=== PATIENT | female | born 1970 | race Caucasian/White ===

== ENCOUNTER 2016-10-07 00:45 | Emergency (ER) | payer MEDICAID, OTHER ==
[2016-10-07 01:03] VITALS: BP 111/56; PULSE 71; RESP 17; TEMP 98.4; O2SAT 97
--- NOTE | 2016-10-07 02:07 | ED PDOC ---
HPI: Abdomen Time Seen by Provider: 10/07/16 01:14 Chief Complaint (Nursing): Abdominal Pain Chief Complaint (Provider): Abdominal pain History Per: Patient History/Exam Limitations: no limitations Onset/Duration Of Symptoms: Days (x1 week) Current Symptoms Are (Timing): Still Present Severity: Mild Location Of Pain/Discomfort: Other (lower) Quality Of Discomfort: Burning Associated Symptoms: denies: Fever Additional Complaint(s): Patient is a 46 year old female, who has a history of ovarian cyst and UTI, presents to the ED complaining of lower abdominal pain x1 week. Pain is reported to be worsening and described as burning. Patient took a home urine test that was negative for an infection. Symptoms are similar to that of her previous ruptured ovarian cyst. Denies fever. PMD: Prateek Schmitz Past Medical History Reviewed: Historical Data, Nursing Documentation, Vital Signs Vital Signs: Last Vital Signs Temp 98.4 F 10/07/16 01:00 Pulse 71 10/07/16 01:00 Resp 17 10/07/16 01:00 BP 111/56 L 10/07/16 01:00 Pulse Ox 97 10/07/16 03:53 - Medical History PMH: Anxiety, Arthritis (RA), Asthma, Hypercholesterolemia, Migraine, Rheumatoid Arthritis - Surgical History Surgical History: Back Surgery (7 cm mass removal from right shoulder blade) Other surgeries: traumatic head injury metal plate placed in her head - Family History Family History: States: No Known Family Hx - Home Medications Home Medications: Ambulatory Orders Medication Instructions Recorded Cetirizine Hydrochloride [Zyrtec] 10 mg PO DAILY 03/18/14 Amoxicillin/Clavulanate [Augmentin 1 tab PO BID #20 tab 07/17/15 500 MG-125 MG] Naproxen [Naprosyn] 500 mg PO BID PRN #30 tab 07/17/15 Ciprofloxacin HCl [Cipro] 500 mg PO BID #14 tab 08/20/15 Naproxen 1 tab PO Q8 PRN #21 tablet 02/03/16 Cyclobenzaprine [Cyclobenzaprine 10 mg PO Q8 #15 tab 06/15/16 HCl] Meloxicam [Mobic] 7.5 mg PO DAILY #20 tab 06/15/16 Ciprofloxacin/Ciprofloxa HCl 500 mg PO Q12 #14 tab 10/07/16 [Ciprofloxacin] traMADol [Ultram] 50 mg PO Q6 #12 tab 10/07/16 - Allergies Allergies/Adverse Reactions: Allergies Allergy/AdvReac Type Severity Reaction Status Date / Time apple Allergy URTICARIA Verified 06/15/16 16:16 banana Allergy URTICARIA Verified 06/15/16 16:16 chocolate flavor Allergy URTICARIA Verified 06/15/16 16:16 EGG Allergy URTICARIA Verified 02/03/16 11:04 garlic Allergy URTICARIA Verified 06/15/16 16:16 latex Allergy RASH Verified 06/15/16 16:16 milk Allergy URTICARIA Verified 06/15/16 16:16 oats Allergy URTICARIA Verified 06/15/16 16:16 peas Allergy URTICARIA Verified 06/15/16 16:16 shellfish derived Allergy URTICARIA Verified 06/15/16 16:16 wheat Allergy URTICARIA Verified 06/15/16 16:16 bee sting Allergy URTICARIA Uncoded 06/15/16 16:16 mosquito bite Allergy URTICARIA Uncoded 06/15/16 16:16 Review of Systems ROS Statement: Except As Marked, All Systems Reviewed And Found Negative Constitutional: Negative for: Fever Gastrointestinal: Positive for: Abdominal Pain Physical Exam - Reviewed Nursing Documentation Reviewed: Yes Vital Signs Reviewed: Yes - Physical Exam Appears: Positive for: Well, Non-toxic, No Acute Distress Head Exam: Positive for: ATRAUMATIC, NORMAL INSPECTION, NORMOCEPHALIC Skin: Positive for: Normal Color, Warm, DRY Eye Exam: Positive for: Normal appearance, EOMI Cardiovascular/Chest: Positive for: Regular Rate, Rhythm. Negative for: Gallop , Murmur Respiratory: Positive for: Normal Breath Sounds. Negative for: Accessory Muscle Use, Rhonchi, Respiratory Distress Gastrointestinal/Abdominal: Positive for: Soft, Tenderness (suprapubic) Extremity: Positive for: Normal ROM Neurologic/Psych: Positive for: Alert, Oriented - Laboratory Results Result Diagrams: 10/07/16 02:00 10/07/16 02:00 - ECG O2 Sat by Pulse Oximetry: 97 (RA) Pulse Ox Interpretation: Normal Medical Decision Making Medical Decision Making: Time: 1:15 Impression: 46 y/o female w/ abdominal pain in setting of hx of ovarian cyst Plan: CMP Lipase UPreg UDip CBC Toradol 10 mg IV UA US Pelvis/Transvag 3:50 Labs reviewed and are within normal limits except urine which is indicative of UTI. US shows right ovary complex cyst 3.7 by 3.2 by 3.3 cm with no evidence of torsion. Patient will follow up in the [facility]. Patient feels better. Discussed results and plan with patient who expresses understanding. Counseling was provided regarding the diagnosis and prognosis. All questions answered and there is agreement with the plan to discharge home with instructions. Patient stable for discharge. Return if symptoms persist or worsen. Scribe Attestation: Documented by Lobo Curry acting as a scribe for Junito Bass MD. Scribe Attestation: All medical record entries made by the Scribe were at my direction and personally dictated by me. I have reviewed the chart and agree that the record accurately reflects my personal performance of the history, physical exam, medical decision making, and the department course for this patient. I have also personally directed, reviewed, and agree with the discharge instructions and disposition. Disposition - Clinical Impression Clinical Impression: Ovarian cyst, UTI (lower urinary tract infection) - Patient ED Disposition Is Patient to be Admitted: No Counseled Patient/Family Regarding: Studies Performed, Diagnosis, Need For Followup - Disposition [facility] Prateek Schmitz MD [Primary Care Provider] - Disposition: Routine/Home Disposition Time: 03:50 Condition: STABLE Prescriptions: Ciprofloxacin/Ciprofloxa HCl [Ciprofloxacin] 500 mg PO Q12 #14 tab traMADol [Ultram] 50 mg PO Q6 #12 tab Instructions: Ovarian Cyst (ED), Urinary Tract Infection in Women (ED)
[2016-10-07 02:46] LABS: BASO # 0.1 K/uL (0.0-0.2); BASO % 0.8 % (0.0-2.0); EOS # 0.2 K/uL (0.0-0.7); HEMATOCRIT 38.8 % (34.0-47.0); LYMPH # 3.4 K/uL (1.0-4.3); LYMPH % 40.6 % (20.0-40.0); MEAN CELL VOLUME 85.5 fl (81.0-99.0); MEAN CORPUSCULAR HEMOGLOBIN 27.5 pg (27.0-31.0); MEAN CORPUSCULAR HGB CONC 32.1 g/dL (33.0-37.0); MEAN PLATELET VOLUME 9.5 fl (7.2-11.7); MONO # 0.8 K/uL (0.0-0.8); NEUT # 3.8 K/uL (1.8-7.0); NEUT % 45.6 % (50.0-75.0); NRBC % 0.1 % (0.0-0.0); RED CELL DISTRIBUTION WIDTH 13.8 % (11.5-14.5); WHITE BLOOD COUNT 8.3 K/uL (4.8-10.8)
[2016-10-07 02:51] LABS: RBC URINE 6 /hpf (0-3); URINE BILIRUBIN SMALL (NEGATIVE); URINE BLOOD NEGATIVE (NEGATIVE); URINE COLOR AMBER (YELLOW); URINE GLUCOSE (UA) NEG (Normal); URINE KETONE TRACE mg/dL (NEGATIVE); URINE LEUKOCYTE ESTERASE NEG Leu/uL (Negative); URINE PROTEIN NEGATIVE (NEGATIVE); WBC URINE < 1 /hpf (0-5)
[2016-10-07 02:53] LABS: CHLORIDE 107 mmol/L (98-107); POTASSIUM 4.1 MMOL/L (3.6-5.0); SODIUM 141 mmol/l (132-148)
[2016-10-07 02:56] LABS: ALB/GLOB RATIO 1.3 (1.0-2.1); ALKALINE PHOSPHATASE 51 U/L (38-126); ALT/SGPT 30 U/L (9-52); AST/SGOT 24 U/L (14-36); BILIRUBIN,TOTAL 0.3 mg/dl (0.2-1.3); BLOOD UREA NITROGEN 18 mg/dl (7-17); CALCIUM 8.9 mg/dL (8.4-10.2); CARBON DIOXIDE 22 mmol/L (22-30); GFR AFRICAN-AMERICAN > 60; GLUCOSE,RANDOM 101 mg/dL (65-105); TOTAL PROTEIN 6.9 G/DL (6.3-8.2)
[2016-10-07 02:57] LABS: LIPASE 95 U/L (23-300)
[2016-10-07] MEDS ORDERED: cefTRIAXone (Rocephin) 1 gm Inj ONE (03:48)
--- NOTE | 2016-10-07 09:09 | US ---
HISTORY: Ovarian cyst COMPARISON: 02/03/2016 TECHNIQUE: Transabdominal and transvaginal pelvic ultrasound was performed. FINDINGS: UTERUS: Measures 8.5 x 4.0 x 4.2 cm. Anteverted, normal in size and appearance. No fibroid or other mass lesion seen. ENDOMETRIUM: Measures 6 mm in diameter. Unremarkable. CERVIX: No cervical abnormality identified. RIGHT OVARY: Measures 5.5 x 3.4 x 5.0 cm. No solid mass. Normal flow. There is a 3.7 x 3.3 x 3.2 cm cyst with internal septation echoes. There is no central flow on color Doppler imaging. LEFT OVARY: Measures 2.8 x 2.3 x 2.6 cm. No solid mass. Normal flow. FREE FLUID: No significant free fluid noted. OTHER FINDINGS: None. IMPRESSION: 3.7 cm complicated/hemorrhagic cyst in the right ovary. No evidence of ovarian torsion. Follow-up ultrasound in 3 months interval is recommended to assess stability/resolution.
== END 2016-10-07 05:19 | disposition home or self-care (01) ==
LOC: H.ER 00:45
DX: N83.201 Unspecified ovarian cyst, right side (principal); N39.0 Urinary tract infection, site not specified; E78.00 Pure hypercholesterolemia, unspecified; F41.9 Anxiety disorder, unspecified; Z87.09 Personal history of other diseases of the respiratory system

== ENCOUNTER 2016-11-12 11:57 | Emergency (ER) | payer MEDICAID, OTHER ==
[2016-11-12 12:03] VITALS: BP 131/66; PULSE 84; RESP 22; TEMP 98; O2SAT 100
--- NOTE | 2016-11-12 12:48 | ED PDOC ---
HPI: General Adult Time Seen by Provider: 11/12/16 12:30 Chief Complaint (Nursing): Cough, Cold, Congestion Chief Complaint (Provider): Allergic Reaction History Per: Patient History/Exam Limitations: no limitations Onset/Duration Of Symptoms: Hrs Current Symptoms Are (Timing): Still Present Additional Complaint(s): 12:30 Rosy Sutton is a 46 year old female with a history of many food allergies that presents to the ED with a chief complaint of an allergic reaction that she began experiencing last night. Patient states that she ate chicken for dinner and began to feel swelling in her face, along with associated redness. She states that she took a Benadryl last night, as well as two this morning, but has not experienced a resolution of her symptoms. Patient has also been experiencing associated difficulty breathing, and used an Albuterol pump, but still has difficulty breathing. She reports some associated nausea, but denies any chest pain, shortness of breath, abdominal pain, swelling to her face, hands , eyes, lips, or tongue, as well as any itchy or watery eyes. Past Medical History Reviewed: Historical Data, Nursing Documentation, Vital Signs Vital Signs: Last Vital Signs Temp 98.0 F 11/12/16 12:01 Pulse 84 11/12/16 12:01 Resp 22 11/12/16 12:01 BP 131/66 11/12/16 12:01 Pulse Ox 100 11/12/16 12:01 - Medical History PMH: Anxiety, Arthritis (RA), Asthma, Hypercholesterolemia, Migraine, Rheumatoid Arthritis - Surgical History Surgical History: Back Surgery (7 cm mass removal from right shoulder blade) - Family History Family History: States: Unknown Family Hx - Home Medications Home Medications: Ambulatory Orders Medication Instructions Recorded Cetirizine Hydrochloride [Zyrtec] 10 mg PO DAILY 03/18/14 Amoxicillin/Clavulanate [Augmentin 1 tab PO BID #20 tab 07/17/15 500 MG-125 MG] Naproxen [Naprosyn] 500 mg PO BID PRN #30 tab 07/17/15 Ciprofloxacin HCl [Cipro] 500 mg PO BID #14 tab 08/20/15 Naproxen 1 tab PO Q8 PRN #21 tablet 02/03/16 Cyclobenzaprine [Cyclobenzaprine 10 mg PO Q8 #15 tab 06/15/16 HCl] Meloxicam [Mobic] 7.5 mg PO DAILY #20 tab 06/15/16 Ciprofloxacin/Ciprofloxa HCl 500 mg PO Q12 #14 tab 10/07/16 [Ciprofloxacin] traMADol [Ultram] 50 mg PO Q6 #12 tab 10/07/16 Cetirizine HCl [Zyrtec Allergy] 10 mg PO DAILY #20 sgl 11/12/16 Famotidine [Pepcid] 20 mg PO BID #16 tab 11/12/16 Methylprednisolone [Medrol Dose 4 mg PO DAILY #21 mg 11/12/16 Pack (21 tabs)] - Allergies Allergies/Adverse Reactions: Allergies Allergy/AdvReac Type Severity Reaction Status Date / Time apple Allergy URTICARIA Verified 06/15/16 16:16 banana Allergy URTICARIA Verified 06/15/16 16:16 chocolate flavor Allergy URTICARIA Verified 06/15/16 16:16 EGG Allergy URTICARIA Verified 02/03/16 11:04 garlic Allergy URTICARIA Verified 06/15/16 16:16 latex Allergy RASH Verified 06/15/16 16:16 milk Allergy URTICARIA Verified 06/15/16 16:16 oats Allergy URTICARIA Verified 06/15/16 16:16 peas Allergy URTICARIA Verified 06/15/16 16:16 shellfish derived Allergy URTICARIA Verified 06/15/16 16:16 wheat Allergy URTICARIA Verified 06/15/16 16:16 bee sting Allergy URTICARIA Uncoded 06/15/16 16:16 mosquito bite Allergy URTICARIA Uncoded 06/15/16 16:16 Review of Systems Constitutional: Positive for: Other (swelling and resness of face) Eyes: Negative for: Other (no itchy or watery eyes) ENT: Negative for: Mouth Swelling, Throat Swelling Cardiovascular: Negative for: Chest Pain Respiratory: Positive for: Other (some difficulty breathing). Negative for: Shortness of Breath Gastrointestinal: Positive for: Nausea (mild). Negative for: Abdominal Pain, Diarrhea Physical Exam - Reviewed Nursing Documentation Reviewed: Yes Vital Signs Reviewed: Yes - Physical Exam Appears: Positive for: Well, Non-toxic Head Exam: Positive for: ATRAUMATIC, NORMOCEPHALIC Skin: Positive for: Normal Color (no erythema to face), Warm ENT: Positive for: Normal ENT Inspection, Other (no swelling noted) Cardiovascular/Chest: Positive for: Regular Rate, Rhythm. Negative for: Murmur Respiratory: Positive for: Normal Breath Sounds. Negative for: Respiratory Distress Neurologic/Psych: Positive for: Alert, Oriented - ECG O2 Sat by Pulse Oximetry: 100 (RA) Pulse Ox Interpretation: Normal Medical Decision Making Medical Decision Makin:35 Impression: Patient with history of allergic reaction with complaint of some shortness of breath Plan: Gave patient Rx for Medrol, Pepcid, and Zyrtec. Advised patient only to use Epipen with severe allergic reaction. Advised patient to return to ER if experiencing no resolution or worsening of symptoms. Scribe Attestation: Documented by Camille Jackson, acting as a scribe for Ana Woodall PA-C. Provider Scribe Attestation: All medical record entries made by the Scribe were at my direction and personally dictated by me. I have reviewed the chart and agree that the record accurately reflects my personal performance of the history, physical exam, medical decision making, and the department course for this patient. I have also personally directed, reviewed, and agree with the discharge instructions and disposition. Disposition - Clinical Impression Clinical Impression: Allergic reaction - Patient ED Disposition Is Patient to be Admitted: No - Disposition Disposition: Routine/Home Disposition Time: 12:35 Condition: STABLE Prescriptions: Cetirizine HCl [Zyrtec Allergy] 10 mg PO DAILY #20 sgl Famotidine [Pepcid] 20 mg PO BID #16 tab Methylprednisolone [Medrol Dose Pack (21 tabs)] 4 mg PO DAILY #21 mg Instructions: Food Allergy (ED), Allergies (ED)
== END 2016-11-12 12:51 | disposition home or self-care (01) ==
LOC: H.ER 11:57
DX: T78.40XA Allergy, unspecified, initial encounter (principal); J45.909 Unspecified asthma, uncomplicated

== ENCOUNTER 2017-01-26 00:01 | Emergency (ER) | payer MEDICAID ==
[2017-01-26 00:18] VITALS: TEMP 98.7
[2017-01-26] MEDS ORDERED: Iohexol 240 (50 ml) PO ONE (00:46)
--- NOTE | 2017-01-26 00:54 | ED PDOC ---
HPI: Abdomen Time Seen by Provider: 01/26/17 00:15 Chief Complaint (Nursing): Abdominal Pain Chief Complaint (Provider): Abdominal Pain History Per: Patient History/Exam Limitations: no limitations Onset/Duration Of Symptoms: Other (x1 week) Current Symptoms Are (Timing): Still Present Location Of Pain/Discomfort: RLQ Associated Symptoms: Other (Migraine headache). denies: Urinary Symptoms Additional Complaint(s): 46 year old female presents to ED with complaints of Right lower quadrant pain x1 week and migraine headache x1 day and has a past medical history of rheumatoid arthritis and migraine. Patient notes migraine is resolving, but feels dizzy. Confirms that Right lower quadrant pain persists. (-) nausea, vomiting, diarrhea, fever, and urinary symptoms. PCP: [facility] Past Medical History Reviewed: Historical Data, Nursing Documentation, Vital Signs Vital Signs: Last Vital Signs Temp 98.7 F 01/26/17 00:15 Pulse 66 01/26/17 05:40 Resp 16 01/26/17 05:40 BP 103/54 L 01/26/17 05:40 Pulse Ox 100 01/26/17 06:31 - Medical History PMH: Anxiety, Arthritis (RA), Asthma, Hypercholesterolemia, Migraine, Rheumatoid Arthritis - Surgical History Surgical History: Back Surgery (7 cm mass removal from right shoulder blade) - Family History Family History: States: Unknown Family Hx - Social History Current smoker - smoking cessation education provided: No Drugs: Denies - Home Medications Home Medications: Ambulatory Orders Medication Instructions Recorded Cetirizine Hydrochloride [Zyrtec] 10 mg PO DAILY 03/18/14 Amoxicillin/Clavulanate [Augmentin 1 tab PO BID #20 tab 07/17/15 500 MG-125 MG] Naproxen [Naprosyn] 500 mg PO BID PRN #30 tab 07/17/15 Ciprofloxacin HCl [Cipro] 500 mg PO BID #14 tab 08/20/15 Naproxen 1 tab PO Q8 PRN #21 tablet 02/03/16 Cyclobenzaprine [Cyclobenzaprine 10 mg PO Q8 #15 tab 06/15/16 HCl] Meloxicam [Mobic] 7.5 mg PO DAILY #20 tab 06/15/16 Ciprofloxacin/Ciprofloxa HCl 500 mg PO Q12 #14 tab 10/07/16 [Ciprofloxacin] traMADol [Ultram] 50 mg PO Q6 #12 tab 10/07/16 Cetirizine HCl [Zyrtec Allergy] 10 mg PO DAILY #20 sgl 11/12/16 Famotidine [Pepcid] 20 mg PO BID #16 tab 11/12/16 Methylprednisolone [Medrol Dose 4 mg PO DAILY #21 mg 11/12/16 Pack (21 tabs)] - Allergies Allergies/Adverse Reactions: Allergies Allergy/AdvReac Type Severity Reaction Status Date / Time apple Allergy URTICARIA Verified 06/15/16 16:16 banana Allergy URTICARIA Verified 06/15/16 16:16 chocolate flavor Allergy URTICARIA Verified 06/15/16 16:16 EGG Allergy URTICARIA Verified 02/03/16 11:04 garlic Allergy URTICARIA Verified 06/15/16 16:16 latex Allergy RASH Verified 06/15/16 16:16 milk Allergy URTICARIA Verified 06/15/16 16:16 oats Allergy URTICARIA Verified 06/15/16 16:16 peas Allergy URTICARIA Verified 06/15/16 16:16 shellfish derived Allergy URTICARIA Verified 06/15/16 16:16 wheat Allergy URTICARIA Verified 06/15/16 16:16 bee sting Allergy URTICARIA Uncoded 06/15/16 16:16 mosquito bite Allergy URTICARIA Uncoded 06/15/16 16:16 Review of Systems ROS Statement: Except As Marked, All Systems Reviewed And Found Negative Constitutional: Negative for: Fever Gastrointestinal: Positive for: Abdominal Pain (RLQ). Negative for: Nausea, Vomiting, Diarrhea Genitourinary Female: Negative for: Dysuria, Frequency, Incontinence, Hematuria Neurological: Positive for: Headache Physical Exam - Reviewed Nursing Documentation Reviewed: Yes Vital Signs Reviewed: Yes - Physical Exam Appears: Positive for: Non-toxic, No Acute Distress. Negative for: Uncomfortable Head Exam: Positive for: ATRAUMATIC, NORMOCEPHALIC Skin: Positive for: Normal Color, Warm, Dry Eye Exam: Positive for: Normal appearance, EOMI, PERRL ENT: Positive for: Normal ENT Inspection Neck: Positive for: Normal, Painless ROM, Supple Cardiovascular/Chest: Positive for: Regular Rate, Rhythm. Negative for: Murmur Respiratory: Positive for: Normal Breath Sounds. Negative for: Respiratory Distress Gastrointestinal/Abdominal: Positive for: Soft, Tenderness (right lower quadrant tenderness) Back: Positive for: Normal Inspection Extremity: Positive for: Normal ROM. Negative for: Deformity Neurologic/Psych: Positive for: Alert, audio visual aids director II-XII (intact), Oriented, Cerebellar Tests (intact), Gait (steady). Negative for: Motor/Sensory Deficits - Laboratory Results Result Diagrams: 01/26/17 00:55 01/26/17 00:55 - ECG O2 Sat by Pulse Oximetry: 100 (RA) Pulse Ox Interpretation: Normal Medical Decision Making Medical Decision Makin Initial impression: dizziness, and abdominal pain rule out intracranial process , rule out appendicitis Initial plan: * CTA A/P * CT HEAD * Labs * Iohexol 50mL PO * Reglan 10mg IVP * ED OBS ADMISSION Scribe Attestation: Documented by Rosetta Quiroga acting as a scribe for Raj Cruz MD. Scribe Attestation: All medical record entries made by the Scribe were at my direction and personally dictated by me. I have reviewed the chart and agree that the record accurately reflects my personal performance of the history, physical exam, medical decision making, and the department course for this patient. I have also personally directed, reviewed, and agree with the discharge instructions and disposition. ED OBSERVATION Discharge: Yes Date of observation admission: 01/26/17 Time of observation admission: 00:47 - Observation admission statement Patient is being placed in observation because:: Pending CT and work up - Goals of Observation Goals of observation are:: CT results and disposition - Progress Note Progress Note: 01/26/17 01:30 Patient resting comfortably. Vitals stable. 01/26/17 03:00 Patient resting comfortably. Vitals stable. 01/26/17 04:00 Labs and chemistry reviewed: no clinically significant findings. 01/26/17 05:00 CT HEAD FINDINGS: Brain: No intracranial hemorrhage. No mass. Mild encephalomalacia RIGHT frontal region. No definite edema. Ventricles: No hydrocephalus. Bones/joints: No acute fracture. Postsurgical changes of calvarium. Soft tissues: Unremarkable. Sinuses: No acute sinusitis. Mastoid air cells: No mastoid effusion. Orbits: Unremarkable as visualized. IMPRESSION: 1. No definite acute intracranial abnormality. 2. Incidental/non-acute findings are described above. CT FINDINGS: Lower thorax: Mild atelectasis/scarring. Breast implants. Small hiatal hernia. ABDOMEN: Liver: Unremarkable. No mass. Gallbladder and bile ducts: No calcified stones. No ductal dilation. Pancreas: No ductal dilation. No mass. Spleen: No splenomegaly. Adrenals: No mass. Kidneys and ureters: Too small to characterize lesion within LEFT kidney. No hydronephrosis. Stomach and bowel: No definite mural thickening. No obstruction. Appendix: Normal caliber. No inflammation. PELVIS: Bladder: Unremarkable. Reproductive: 2.8 x 1.8 x 2.7 cm peripherally enhancing hypodensity with crenulated margins with in LEFT ovary. ABDOMEN and PELVIS: Intraperitoneal space: Small free fluid within pelvis. No free air. Bones/joints: No acute fracture. Soft tissues: Unremarkable. Vasculature: Unremarkable. No aneurysm. Lymph nodes: No pathologically enlarged lymph nodes. IMPRESSION: 1. Involuting or ruptured LEFT ovarian follicle/cyst. 2. Incidental/non-acute findings are described above. 01/26/17 05:30 Upon re-evaluation, patient is feeling much better and is medically stable and ready for discharge. discussed results of imaging with pt. Counseling has been provided and patient is in agreement. Return if symptoms persist or acutely worsen. 01/27/17 10:03 Disposition - Clinical Impression Clinical Impression: Abdominal pain - Patient ED Disposition Is Patient to be Admitted: No Counseled Patient/Family Regarding: Studies Performed, Diagnosis, Need For Followup - Disposition Disposition: Routine/Home Disposition Time: 00:47 Condition: IMPROVED - Pt Status Changed To: Hospital Disposition Of: Observation
[2017-01-26] MEDS ORDERED: Iohexol 240 (50 ml) ONE (01:05)
[2017-01-26] MEDS ORDERED: Sodium Chloride 0.9% 50 ML IV ONE (03:58)
[2017-01-26] MEDS ORDERED: Iohexol 300 100 ML IJ ONE (03:58)
[2017-01-26 05:12] LABS: ALB/GLOB RATIO 1.4 (1.0-2.1); ALKALINE PHOSPHATASE 47 U/L (38-126); ALT/SGPT 37 U/L (9-52); AST/SGOT 24 U/L (14-36); BASO # 0.1 K/uL (0.0-0.2); BASO % 0.7 % (0.0-2.0); BILIRUBIN,TOTAL 0.5 mg/dl (0.2-1.3); BLOOD UREA NITROGEN 12 mg/dl (7-17); CALCIUM 9.5 mg/dL (8.4-10.2); CARBON DIOXIDE 23 mmol/L (22-30); CHLORIDE 108 mmol/L (98-107); EOS # 0.2 K/uL (0.0-0.7); EOS % 2.8 % (0.0-4.0); GFR AFRICAN-AMERICAN > 60; GLUCOSE,RANDOM 90 mg/dL (65-105); HEMATOCRIT 43.1 % (34.0-47.0); LYMPH # 3.2 K/uL (1.0-4.3); LYMPH % 36.1 % (20.0-40.0); MEAN CELL VOLUME 85.2 fl (81.0-99.0); MEAN CORPUSCULAR HEMOGLOBIN 27.1 pg (27.0-31.0); MEAN CORPUSCULAR HGB CONC 31.9 g/dL (33.0-37.0); MONO # 0.7 K/uL (0.0-0.8); MONO % 7.7 % (0.0-10.0); NEUT # 4.7 K/uL (1.8-7.0); NEUT % 52.7 % (50.0-75.0); POTASSIUM 4.5 MMOL/L (3.6-5.0); RED CELL DISTRIBUTION WIDTH 14.5 % (11.5-14.5); SODIUM 139 mmol/l (132-148); TOTAL PROTEIN 7.8 G/DL (6.3-8.2)
--- NOTE | 2017-01-26 05:30 | CT ---
EXAM: CT Head Without Intravenous Contrast CLINICAL HISTORY: 46 years old, female; Pain; Headache; Prior surgery; Surgery date: 6+ months; Surgery type: Skull plate per patient TECHNIQUE: Axial computed tomography images of the head/brain without intravenous contrast. This CT exam was performed using one or more of the following dose reduction techniques: automated exposure control, adjustment of the mA and/or kV according to patient size, and/or use of iterative reconstruction technique. Coronal and sagittal reformatted images were created and reviewed. COMPARISON: CT - HEAD W/O CONTRAST 04/24/2015 11:18:11 PM FINDINGS: Brain: No intracranial hemorrhage. No mass. Mild encephalomalacia RIGHT frontal region. No definite edema. Ventricles: No hydrocephalus. Bones/joints: No acute fracture. Postsurgical changes of calvarium. Soft tissues: Unremarkable. Sinuses: No acute sinusitis. Mastoid air cells: No mastoid effusion. Orbits: Unremarkable as visualized. IMPRESSION: 1. No definite acute intracranial abnormality. 2. Incidental/non-acute findings are described above.
--- NOTE | 2017-01-26 05:31 | CT ---
EXAM: CT Abdomen and Pelvis With Intravenous Contrast CLINICAL HISTORY: 46 years old, female; Pain; Abdominal pain; Generalized TECHNIQUE: Axial computed tomography images of the abdomen and pelvis with intravenous contrast. This CT exam was performed using one or more of the following dose reduction techniques: automated exposure control, adjustment of the mA and/or kV according to patient size, and/or use of iterative reconstruction technique. Coronal and sagittal reformatted images were created and reviewed. CONTRAST: 90 mL of [id number] administered intravenously. COMPARISON: CT - ABD PELVIS PO IV CONTRAST 02/03/2016 4:00:09 PM FINDINGS: Lower thorax: Mild atelectasis/scarring. Breast implants. Small hiatal hernia. ABDOMEN: Liver: Unremarkable. No mass. Gallbladder and bile ducts: No calcified stones. No ductal dilation. Pancreas: No ductal dilation. No mass. Spleen: No splenomegaly. Adrenals: No mass. Kidneys and ureters: Too small to characterize lesion within LEFT kidney. No hydronephrosis. Stomach and bowel: No definite mural thickening. No obstruction. Appendix: Normal caliber. No inflammation. PELVIS: Bladder: Unremarkable. Reproductive: 2.8 x 1.8 x 2.7 cm peripherally enhancing hypodensity with crenulated margins within LEFT ovary. ABDOMEN and PELVIS: Intraperitoneal space: Small free fluid within pelvis. No free air. Bones/joints: No acute fracture. Soft tissues: Unremarkable. Vasculature: Unremarkable. No aneurysm. Lymph nodes: No pathologically enlarged lymph nodes. IMPRESSION: 1. Involuting or ruptured LEFT ovarian follicle/cyst. 2. Incidental/non-acute findings are described above.
[2017-01-26 06:00] VITALS: BP 103/54; PULSE 66; RESP 16
[2017-01-26 06:31] VITALS: O2SAT 100
== END 2017-01-26 05:44 | disposition home or self-care (01) ==
LOC: H.ER 00:01
DX: G43.909 Migraine, unspecified, not intractable, without status migrainosus (principal); E78.00 Pure hypercholesterolemia, unspecified; F41.9 Anxiety disorder, unspecified; K44.9 Diaphragmatic hernia without obstruction or gangrene

== ENCOUNTER 2017-02-28 23:57 | Emergency (ER) | payer MEDICAID ==
[2017-03-01 00:02] VITALS: BP 120/65; PULSE 87; RESP 16; TEMP 98.5; O2SAT 100
--- NOTE | 2017-03-01 00:24 | ED PDOC ---
HPI: Female Pain Time Seen by Provider: 03/01/17 00:03 Chief Complaint (Nursing): Female Genitourinary Chief Complaint (Provider): Dysuria and Suprapubic Pain History Per: Patient History/Exam Limitations: no limitations Onset/Duration Of Symptoms: Days (7) Current Symptoms Are (Timing): Still Present Severity: Moderate Quality Of Discomfort: "Pain" Associated Symptoms: Back Pain, Urinary Symptoms. denies: Fever, Nausea, Vomiting Additional History Per: Patient Additional Complaint(s): 47 y/o female complaining of suprapubic pain, back pain, and dysuria for the last few days. No fever, chills, nausea, or vomiting. She reports that she has been taking her friend's PCN for the last 4 days. No other complaints at this time. Past Medical History Vital Signs: Last Vital Signs Temp 98.5 F 03/01/17 00:00 Pulse 87 03/01/17 00:00 Resp 16 03/01/17 00:00 BP 120/65 03/01/17 00:00 Pulse Ox 100 03/01/17 00:00 - Medical History PMH: Anxiety, Arthritis (RA), Asthma, Hypercholesterolemia, Migraine, Rheumatoid Arthritis - Surgical History Surgical History: Back Surgery (7 cm mass removal from right shoulder blade) - Family History Family History: States: Unknown Family Hx - Home Medications Home Medications: Ambulatory Orders Medication Instructions Recorded Cetirizine Hydrochloride [Zyrtec] 10 mg PO DAILY 03/18/14 Amoxicillin/Clavulanate [Augmentin 1 tab PO BID #20 tab 07/17/15 500 MG-125 MG] Naproxen [Naprosyn] 500 mg PO BID PRN #30 tab 07/17/15 Ciprofloxacin HCl [Cipro] 500 mg PO BID #14 tab 08/20/15 Naproxen 1 tab PO Q8 PRN #21 tablet 02/03/16 Cyclobenzaprine [Cyclobenzaprine 10 mg PO Q8 #15 tab 06/15/16 HCl] Meloxicam [Mobic] 7.5 mg PO DAILY #20 tab 06/15/16 Ciprofloxacin/Ciprofloxa HCl 500 mg PO Q12 #14 tab 10/07/16 [Ciprofloxacin] traMADol [Ultram] 50 mg PO Q6 #12 tab 10/07/16 Cetirizine HCl [Zyrtec Allergy] 10 mg PO DAILY #20 sgl 11/12/16 Famotidine [Pepcid] 20 mg PO BID #16 tab 11/12/16 Methylprednisolone [Medrol Dose 4 mg PO DAILY #21 mg 11/12/16 Pack (21 tabs)] Ciprofloxacin [Cipro] 500 mg PO BID 5 Days 03/01/17 - Allergies Allergies/Adverse Reactions: Allergies Allergy/AdvReac Type Severity Reaction Status Date / Time apple Allergy URTICARIA Verified 06/15/16 16:16 banana Allergy URTICARIA Verified 06/15/16 16:16 chocolate flavor Allergy URTICARIA Verified 06/15/16 16:16 EGG Allergy URTICARIA Verified 02/03/16 11:04 garlic Allergy URTICARIA Verified 06/15/16 16:16 latex Allergy RASH Verified 06/15/16 16:16 milk Allergy URTICARIA Verified 06/15/16 16:16 oats Allergy URTICARIA Verified 06/15/16 16:16 peas Allergy URTICARIA Verified 06/15/16 16:16 shellfish derived Allergy URTICARIA Verified 06/15/16 16:16 wheat Allergy URTICARIA Verified 06/15/16 16:16 bee sting Allergy URTICARIA Uncoded 06/15/16 16:16 mosquito bite Allergy URTICARIA Uncoded 06/15/16 16:16 Review of Systems ROS Statement: Except As Marked, All Systems Reviewed And Found Negative Gastrointestinal: Positive for: Abdominal Pain Genitourinary Female: Positive for: Dysuria Musculoskeletal: Positive for: Back Pain Physical Exam - Reviewed Nursing Documentation Reviewed: Yes Vital Signs Reviewed: Yes - Physical Exam Appears: Positive for: Well, Non-toxic, No Acute Distress Head Exam: Positive for: ATRAUMATIC, NORMAL INSPECTION, NORMOCEPHALIC Skin: Positive for: Normal Color, Warm, DRY Eye Exam: Positive for: EOMI, Normal appearance, PERRL ENT: Positive for: Normal ENT Inspection Neck: Positive for: Normal, Painless ROM Cardiovascular/Chest: Positive for: Regular Rate, Rhythm Respiratory: Positive for: CNT, Normal Breath Sounds Gastrointestinal/Abdominal: Positive for: Normal Exam, Bowel Sounds, Soft Back: Positive for: Normal Inspection Extremity: Positive for: Normal ROM Neurologic/Psych: Positive for: Alert, Oriented - ECG O2 Sat by Pulse Oximetry: 100 Medical Decision Making Medical Decision Making: Impression: 47 year old female complaining of back pain, suprapubic pain, and dysuria. Plan - UA Urine results are clean, however the PCN is likely obscuring results. Will send for culture and [facility]. Scribe Attestation Documented by Mayte Boucher acting as a scribe for Dr. Jose Alejandro Saldivar. Provider Attestation: All medical record entries made by the Scribe were at my direction and personally dictated by me. I have reviewed the chart and agree that the record accurately reflects my personal performance of the history, physical exam, medical decision making, and the department course for this patient. I have also personally directed, reviewed, and agree with the discharge instructions and disposition. Disposition - Clinical Impression Clinical Impression: Female genitourinary symptoms - Patient ED Disposition Is Patient to be Admitted: No Doctor Will See Patient In The: Office Counseled Patient/Family Regarding: Studies Performed, Diagnosis, Need For Followup - Disposition Referrals: [facility] [Outside] Disposition: Routine/Home Disposition Time: 00:20 Condition: STABLE Prescriptions: Ciprofloxacin [Cipro] 500 mg PO BID 5 Days Instructions: Dysuria (ED), Urinary Tract Infection in Women (ED) Forms: [facility] (Armenian)
[2017-03-01 00:51] LABS: RBC URINE 1 /hpf (0-3); URINE BILIRUBIN NEGATIVE (NEGATIVE); URINE BLOOD NEGATIVE (NEGATIVE); URINE COLOR YELLOW (YELLOW); URINE GLUCOSE (UA) NEG (Normal); URINE KETONE NEGATIVE (NEGATIVE); URINE LEUKOCYTE ESTERASE NEG Leu/uL (Negative); URINE PROTEIN NEGATIVE (NEGATIVE); URINE UROBILINOGEN 0.2-1.0 mg/dL (0.2-1.0); WBC URINE < 1 /hpf (0-5)
== END 2017-03-01 00:49 | disposition home or self-care (01) ==
LOC: H.ER 23:57
DX: R10.2 Pelvic and perineal pain (principal); R30.0 Dysuria; F41.9 Anxiety disorder, unspecified

== ENCOUNTER 2017-04-15 15:27 | Emergency (ER) | payer MEDICAID ==
[2017-04-15 15:37] VITALS: BP 124/73; PULSE 68; RESP 16; TEMP 98.7; O2SAT 100
--- NOTE | 2017-04-15 16:15 | ED PDOC ---
HPI: Female Pain Time Seen by Provider: 04/15/17 15:39 Chief Complaint (Nursing): Abdominal Pain Chief Complaint (Provider): Pelvic Pain History Per: Patient History/Exam Limitations: no limitations Onset/Duration Of Symptoms: Intermittent Episodes Current Symptoms Are (Timing): Still Present Additional Complaint(s): Rosy Sutton is a 47 year old female with a history of high cholesterol and anxiety that presents to the ED with a chief complaint of pelvic pain that has been ongoing intermittently for the past few months, but that has recently gotten worse over the past two days. Patient states that she has been seen in ED before and has been diagnosed with UTI and ovarian cysts, but has been unable to follow up with her personnel security specialist due to insurance issues. She reports associated dysuria, frequency, and low back pain, and states that she took Alleve with minimal relief. She denies any fever, vaginal discharge, vaginal bleeding, nausea, vomiting, diarrhea, or constipation. Patient states that she is perimenopausal and has irregular and short periods, the last of which occurred one week ago. PMD: Dr. Schmitz Past Medical History Reviewed: Historical Data, Nursing Documentation, Vital Signs Vital Signs: Last Vital Signs Temp 98.7 F 04/15/17 15:32 Pulse 68 04/15/17 15:32 Resp 16 04/15/17 15:32 BP 124/73 04/15/17 15:32 Pulse Ox 100 04/15/17 15:32 - Medical History PMH: Anxiety, Arthritis (RA), Asthma, Hypercholesterolemia, Migraine, Rheumatoid Arthritis - Surgical History Surgical History: Back Surgery (7 cm mass removal from right shoulder blade) - Family History Family History: States: Unknown Family Hx - Home Medications Home Medications: Ambulatory Orders Medication Instructions Recorded Cetirizine Hydrochloride [Zyrtec] 10 mg PO DAILY 03/18/14 Amoxicillin/Clavulanate [Augmentin 1 tab PO BID #20 tab 07/17/15 500 MG-125 MG] Naproxen [Naprosyn] 500 mg PO BID PRN #30 tab 07/17/15 Ciprofloxacin HCl [Cipro] 500 mg PO BID #14 tab 08/20/15 Naproxen 1 tab PO Q8 PRN #21 tablet 02/03/16 Cyclobenzaprine [Cyclobenzaprine 10 mg PO Q8 #15 tab 06/15/16 HCl] Meloxicam [Mobic] 7.5 mg PO DAILY #20 tab 06/15/16 Ciprofloxacin/Ciprofloxa HCl 500 mg PO Q12 #14 tab 10/07/16 [Ciprofloxacin] traMADol [Ultram] 50 mg PO Q6 #12 tab 10/07/16 Cetirizine HCl [Zyrtec Allergy] 10 mg PO DAILY #20 sgl 11/12/16 Famotidine [Pepcid] 20 mg PO BID #16 tab 11/12/16 Methylprednisolone [Medrol Dose 4 mg PO DAILY #21 mg 11/12/16 Pack (21 tabs)] Ciprofloxacin [Cipro] 500 mg PO BID 5 Days tab 03/01/17 Fluconazole [Diflucan] 150 mg PO QWK #2 tab 04/15/17 Phenazopyridine [Phenazopyridine 200 mg PO Q12 PRN #20 tab 04/15/17 HCl] traMADol [Ultram] 50 mg PO TID PRN #15 tab 04/15/17 - Allergies Allergies/Adverse Reactions: Allergies Allergy/AdvReac Type Severity Reaction Status Date / Time apple Allergy URTICARIA Verified 06/15/16 16:16 banana Allergy URTICARIA Verified 06/15/16 16:16 chocolate flavor Allergy URTICARIA Verified 06/15/16 16:16 EGG Allergy URTICARIA Verified 02/03/16 11:04 garlic Allergy URTICARIA Verified 06/15/16 16:16 latex Allergy RASH Verified 06/15/16 16:16 milk Allergy URTICARIA Verified 06/15/16 16:16 oats Allergy URTICARIA Verified 06/15/16 16:16 peas Allergy URTICARIA Verified 06/15/16 16:16 shellfish derived Allergy URTICARIA Verified 06/15/16 16:16 wheat Allergy URTICARIA Verified 06/15/16 16:16 bee sting Allergy URTICARIA Uncoded 06/15/16 16:16 mosquito bite Allergy URTICARIA Uncoded 06/15/16 16:16 Review of Systems Constitutional: Negative for: Fever Gastrointestinal: Negative for: Nausea, Vomiting, Diarrhea, Constipation Genitourinary Female: Positive for: Dysuria, Frequency, Pelvic Pain. Negative for: Vaginal Discharge, Vaginal Bleeding Musculoskeletal: Positive for: Back Pain (Lower back) Physical Exam - Reviewed Nursing Documentation Reviewed: Yes Vital Signs Reviewed: Yes - Physical Exam Appears: Positive for: Non-toxic, In Acute Distress Head Exam: Positive for: ATRAUMATIC, NORMOCEPHALIC Skin: Positive for: Warm, Dry Eye Exam: Positive for: EOMI, PERRL ENT: Positive for: Pharynx Is (clear) Neck: Positive for: Painless ROM, Supple Cardiovascular/Chest: Positive for: Regular Rate, Rhythm, Chest Non Tender. Negative for: Murmur Respiratory: Positive for: Normal Breath Sounds. Negative for: Respiratory Distress Gastrointestinal/Abdominal: Positive for: Bowel Sounds, Soft, Tenderness ( suprapubic). Negative for: Mass, Distended, Guarding, Rebound Pelvic Exam: Positive for: External Exam Normal, Discharge (white cottage cheese ), Tender Adnexa, Tender Uterus, Other (Laboratory Phlebotomist: IVAN Joseph). Negative for: Blood, Cervicitis Back: Positive for: Normal Inspection. Negative for: Muscle Spasm Extremity: Positive for: Normal ROM. Negative for: Deformity Lymphatic: Negative for: Adenopathy, Inguinal Node Tenderness Neurologic/Psych: Positive for: Alert. Negative for: Motor/Sensory Deficits - ECG O2 Sat by Pulse Oximetry: 100 (RA) Pulse Ox Interpretation: Normal Medical Decision Making Medical Decision Making: Impression: Pelvic Pain and Dysuria, ddx include UTI vs. Cystitis vs. Ovarian Cysts vs. Ovarian Torsion vs. PID Plan: * US Transvaginal * Urine Dip * Urine Preg * Urinalysis * Urine Culture * Genital Culture * Chlamydia/GC RNA * Toradol 30 mg IM * Reevaluation Time: 18:40 --US Transvag FINDINGS: UTERUS: Measures 8.2 x 3.5 x 4.6 cm. No discrete mass. Heterogeneous echogenicity most prominently in the fundus. Nonspecific. ENDOMETRIUM: Measures 8 mm in diameter. Unremarkable. CERVIX: No cervical abnormality identified. RIGHT OVARY: Measures 2.2 x 1.6 x 2.7 cm. No solid mass. Normal flow. 1.7 cm follicular cyst. LEFT OVARY: Measures 2.6 x 2.1 x 2.2 cm. No solid mass. Normal flow. 1.7 cm follicular cyst FREE FLUID: No significant free fluid noted. OTHER FINDINGS: None. IMPRESSION: No significant abnormality identified. Scribe Attestation: Documented by Camille Jackson, acting as a scribe for No Hinson MD. Provider Scribe Attestation: All medical record entries made by the Scribe were at my direction and personally dictated by me. I have reviewed the chart and agree that the record accurately reflects my personal performance of the history, physical exam, medical decision making, and the department course for this patient. I have also personally directed, reviewed, and agree with the discharge instructions and disposition. Scribe Attestation: Documented by Scarlet Gallo, acting as a scribe for No Hinson MD. Provider Scribe Attestation: All medical record entries made by the Scribe were at my direction and personally dictated by me. I have reviewed the chart and agree that the record accurately reflects my personal performance of the history, physical exam, medical decision making, and the department course for this patient. I have also personally directed, reviewed, and agree with the discharge instructions and disposition. Disposition - Clinical Impression Clinical Impression: Vaginitis, Pelvic pain, Dysuria Counseled Patient/Family Regarding: Studies Performed, Diagnosis, Need For Followup, Rx Given - Disposition Referrals: [facility] [Outside] Rj Medina MD [Staff Provider] - (CALL TO SETUP APPOINTMENT WITHIN A WEEK) Disposition: Routine/Home Disposition Time: 19:13 Condition: STABLE Prescriptions: Fluconazole [Diflucan] 150 mg PO QWK #2 tab Phenazopyridine [Phenazopyridine HCl] 200 mg PO Q12 PRN #20 tab PRN Reason: dysuria traMADol [Ultram] 50 mg PO TID PRN #15 tab PRN Reason: SEVERE PAIN ONLY Instructions: Vaginitis (ED), Dysuria (ED), Pelvic Pain in Women (ED)
[2017-04-15 16:23] LABS: RBC URINE 1 /hpf (0-3); URINE BILIRUBIN NEGATIVE (NEGATIVE); URINE BLOOD NEGATIVE (NEGATIVE); URINE COLOR YELLOW (YELLOW); URINE GLUCOSE (UA) NEG (Normal); URINE KETONE NEGATIVE (NEGATIVE); URINE LEUKOCYTE ESTERASE NEG Leu/uL (Negative); URINE PROTEIN NEGATIVE (NEGATIVE); URINE UROBILINOGEN 0.2-1.0 mg/dL (0.2-1.0); WBC URINE < 1 /hpf (0-5)
--- NOTE | 2017-04-15 18:41 | US ---
HISTORY: pelvic pain COMPARISON: None available. TECHNIQUE: Transvaginal FINDINGS: UTERUS: Measures 8.2 x 3.5 x 4.6 cm. No discrete mass. Heterogeneous echogenicity most prominently in the fundus. Nonspecific. ENDOMETRIUM: Measures 8 mm in diameter. Unremarkable. CERVIX: No cervical abnormality identified. RIGHT OVARY: Measures 2.2 x 1.6 x 2.7 cm. No solid mass. Normal flow. 1.7 cm follicular cyst. LEFT OVARY: Measures 2.6 x 2.1 x 2.2 cm. No solid mass. Normal flow. 1.7 cm follicular cyst FREE FLUID: No significant free fluid noted. OTHER FINDINGS: None. IMPRESSION: No significant abnormality identified.
== END 2017-04-15 19:25 | disposition home or self-care (01) ==
LOC: H.ER 15:27
DX: N76.0 Acute vaginitis (principal); E78.00 Pure hypercholesterolemia, unspecified; F41.9 Anxiety disorder, unspecified; J45.909 Unspecified asthma, uncomplicated; M06.9 Rheumatoid arthritis, unspecified; N83.209 Unspecified ovarian cyst, unspecified side
CPT/HCPCS: 76830; 81003; 81025; 87070; 87086; 87491; 87591; 96372; 99283; J1885

== ENCOUNTER 2017-08-29 10:23 | Emergency (ER) | payer MEDICAID ==
[2017-08-29 10:27] VITALS: BMI 26.5
[2017-08-29 10:28] VITALS: TEMP 98.2
[2017-08-29 12:03] VITALS: RESP 18
--- NOTE | 2017-08-29 12:08 | ED PDOC ---
HPI: General Adult Time Seen by Provider: 08/29/17 10:38 Chief Complaint (Nursing): Shortness Of Breath History Per: Patient History/Exam Limitations: no limitations Onset/Duration Of Symptoms: Days (x yesterday) Current Symptoms Are (Timing): Still Present Additional Complaint(s): Ms. Gallegos is a 47 year old female who presents to ED for throat irritation, coughing and wheezing since yesterday. Patient reports she has multiple allergies. Patient states yesterday after cooking with garlic, she developed throat irritation, cough, wheezing that continued today. Patient states she took her Zyrtec Nasal [place] and her asthma pump with some relief. Denies any chest pain or difficulty breathing now, but had wheezing and difficulty breathing this morning. Denies rash, chest pain, fevers, asthma. PMD: Marmal Past Medical History Reviewed: Historical Data, Nursing Documentation, Vital Signs Vital Signs: Last Vital Signs Temp 98.2 F 08/29/17 10:27 Pulse 76 08/29/17 10:27 Resp 18 08/29/17 12:01 BP 116/78 08/29/17 10:27 Pulse Ox 100 08/29/17 13:07 - Medical History PMH: Anxiety, Arthritis (RA), Asthma, Hypercholesterolemia, Migraine, Rheumatoid Arthritis - Surgical History Surgical History: Back Surgery (7 cm mass removal from right shoulder blade) - Family History Family History: States: Unknown Family Hx - Home Medications Home Medications: Ambulatory Orders Medication Instructions Recorded Cetirizine Hydrochloride [Zyrtec] 10 mg PO DAILY 03/18/14 Amoxicillin/Clavulanate [Augmentin 1 tab PO BID #20 tab 07/17/15 500 MG-125 MG] Naproxen [Naprosyn] 500 mg PO BID PRN #30 tab 07/17/15 Ciprofloxacin HCl [Cipro] 500 mg PO BID #14 tab 08/20/15 Naproxen 1 tab PO Q8 PRN #21 tablet 02/03/16 Cyclobenzaprine [Cyclobenzaprine 10 mg PO Q8 #15 tab 06/15/16 HCl] Meloxicam [Mobic] 7.5 mg PO DAILY #20 tab 06/15/16 Ciprofloxacin/Ciprofloxa HCl 500 mg PO Q12 #14 tab 10/07/16 [Ciprofloxacin] traMADol [Ultram] 50 mg PO Q6 #12 tab 10/07/16 Cetirizine HCl [Zyrtec Allergy] 10 mg PO DAILY #20 sgl 11/12/16 Famotidine [Pepcid] 20 mg PO BID #16 tab 11/12/16 Methylprednisolone [Medrol Dose 4 mg PO DAILY #21 mg 11/12/16 Pack (21 tabs)] Ciprofloxacin [Cipro] 500 mg PO BID 5 Days tab 03/01/17 Fluconazole [Diflucan] 150 mg PO QWK #2 tab 04/15/17 Phenazopyridine [Phenazopyridine 200 mg PO Q12 PRN #20 tab 04/15/17 HCl] traMADol [Ultram] 50 mg PO TID PRN #15 tab 04/15/17 Albuterol 0.083% [Albuterol 3 ml IH Q4 #20 neb 08/29/17 Sulfate 3 Ml] Epinephrine HCl [Epipen 0.3 mg MR ONCE #1 syr 08/29/17 Auto-Injector] Mask, Face [Nebulizer Aerosol Mask 1 dev INH PRN #1 dev 08/29/17 Adult] Nebulizer [Aeroeclipse II] 1 each ONCE #1 each 08/29/17 Prednisone [Deltasone] 60 mg PO DAILY 5 Days tablet 08/29/17 - Allergies Allergies/Adverse Reactions: Allergies Allergy/AdvReac Type Severity Reaction Status Date / Time apple Allergy URTICARIA Verified 06/15/16 16:16 banana Allergy URTICARIA Verified 06/15/16 16:16 chocolate flavor Allergy URTICARIA Verified 06/15/16 16:16 EGG Allergy URTICARIA Verified 02/03/16 11:04 garlic Allergy URTICARIA Verified 06/15/16 16:16 latex Allergy RASH Verified 06/15/16 16:16 milk Allergy URTICARIA Verified 06/15/16 16:16 oats Allergy URTICARIA Verified 06/15/16 16:16 peas Allergy URTICARIA Verified 06/15/16 16:16 shellfish derived Allergy URTICARIA Verified 06/15/16 16:16 wheat Allergy URTICARIA Verified 06/15/16 16:16 bee sting Allergy URTICARIA Uncoded 06/15/16 16:16 mosquito bite Allergy URTICARIA Uncoded 06/15/16 16:16 Review of Systems ROS Statement: Except As Marked, All Systems Reviewed And Found Negative ENT: Positive for: Other (Throat Irritation) Cardiovascular: Negative for: Chest Pain Respiratory: Positive for: Cough, Wheezing. Negative for: Other (Difficulty breathing) Skin: Negative for: Rash Physical Exam - Reviewed Nursing Documentation Reviewed: Yes Vital Signs Reviewed: Yes - Physical Exam Appears: Positive for: Well, Non-toxic, No Acute Distress Head Exam: Positive for: ATRAUMATIC, NORMAL INSPECTION, NORMOCEPHALIC Skin: Positive for: Normal Color, Warm, Dry Eye Exam: Positive for: Normal appearance, EOMI, PERRL ENT: Positive for: Normal ENT Inspection Neck: Positive for: Normal Cardiovascular/Chest: Positive for: Regular Rate, Rhythm Respiratory: Positive for: Normal Breath Sounds. Negative for: Respiratory Distress Gastrointestinal/Abdominal: Positive for: Normal Exam Back: Positive for: Normal Inspection Extremity: Positive for: Normal ROM. Negative for: Deformity Neurologic/Psych: Positive for: Alert, information technology technician II-XII, Oriented (x 3) - ECG O2 Sat by Pulse Oximetry: 100 (RA) Pulse Ox Interpretation: Normal Medical Decision Making Medical Decision Making: Time: 11:03 Impression(s): Asthma, Allergic Reaction Plan: - Pepcid 20 mg PO STAT - predniSONE 60 mg PO STAT Upon provider evaluation patient is medically stable, and requires no further treatment in the ED at this time. Patient will be discharged with Rx for Albuterol Sulfate 3ML, Nebulizar Aersol Mask Adult, Aeroeclipse II, and Deltasone. Counseling was provided and all questions were answered regarding diagnosis and need for follow up with PCP. There is agreement to discharge plan. Return if symptoms persist or worsen. Scribe Attestation: Documented by Noe Vásquez, acting as a scribe for Angeles Driver MD. Provider Scribe Attestation: All medical record entries made by the Scribe were at my direction and personally dictated by me. I have reviewed the chart and agree that the record accurately reflects my personal performance of the history, physical exam, medical decision making, and the department course for this patient. I have also personally directed, reviewed, and agree with the discharge instructions and disposition. Disposition - Clinical Impression Clinical Impression: Asthma, Allergic rhinitis - Patient ED Disposition Is Patient to be Admitted: No Doctor Will See Patient In The: Office Counseled Patient/Family Regarding: Studies Performed, Diagnosis, Need For Followup - Disposition Referrals: [facility] [Outside] Disposition: Routine/Home Disposition Time: 13:01 Condition: GOOD Additional Instructions: Follow up with your PCP in 2-3 days. Tale your medications as instructed. Prescriptions: Albuterol 0.083% [Albuterol Sulfate 3 Ml] 3 ml IH Q4 #20 neb Epinephrine HCl [Epipen Auto-Injector] 0.3 mg MR ONCE #1 syr Mask, Face [Nebulizer Aerosol Mask Adult] 1 dev INH PRN #1 dev Nebulizer [Aeroeclipse II] 1 each MC ONCE #1 each Prednisone [Deltasone] 60 mg PO DAILY 5 Days tablet Instructions: Seasonal Allergies in Adults, Asthma, Adult (DC)
[2017-08-29 17:20] VITALS: BP 124/76; PULSE 78; O2SAT 99
== END 2017-08-29 17:20 | disposition home or self-care (01) ==
LOC: H.ER 10:23
DX: J45.909 Unspecified asthma, uncomplicated (principal); J30.9 Allergic rhinitis, unspecified; E78.00 Pure hypercholesterolemia, unspecified; F41.9 Anxiety disorder, unspecified; M06.9 Rheumatoid arthritis, unspecified

== ENCOUNTER 2017-11-29 20:43 | Emergency (ER) | payer MEDICAID ==
[2017-11-29 20:43] VITALS: BMI 26.5
[2017-11-29 21:18] VITALS: BP 123/76; PULSE 76; RESP 18; TEMP 98.2; O2SAT 99
[2017-11-29] MEDS ORDERED: PROPARACAINE/FLUORESCEIN SOD 100 DROP/5 ML BOTTLE ONE (22:08)
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
[2017-11-29] MEDS ORDERED: PROPARACAINE/FLUORESCEIN SOD 100 DROP/5 ML BOTTLE OS STA (22:33)
[2017-11-29] MEDS ORDERED: Lidocaine 1% Inj (20ml) ONE (23:24)
[2017-11-29] MEDS ORDERED: Piperacillin/Tazobact 3.375 gm Inj IVPB ONE (23:26)
== END 2017-11-29 23:05 | disposition home or self-care (01) ==
LOC: H.ER 20:43
DX: S05.02XA Injury of conjunctiva and corneal abrasion without foreign body, left eye, initial encounter (principal); W22.8XXA Striking against or struck by other objects, initial encounter; J45.909 Unspecified asthma, uncomplicated; M06.9 Rheumatoid arthritis, unspecified; E78.00 Pure hypercholesterolemia, unspecified

== ENCOUNTER 2018-02-23 09:56 | Emergency (ER) | payer MEDICAID, OTHER ==
[2018-02-23 10:01] VITALS: BMI 28.3
--- NOTE | 2018-02-23 10:37 | ED PDOC ---
HPI: General Adult Time Seen by Provider: 02/23/18 10:21 Chief Complaint (Nursing): Female Genitourinary History Per: Patient Additional Complaint(s): Pt. states for the past 3 weeks she's had atraumatic L flank pain and this morning she developed R sided pelvic pain. Pt. states L sided flank pain is worse with movement especially with twisting of upper torso. Reports R sided pelvic pain has been going on intermittently for the past year which always occurs during the last day of her menstrual cycle which is consistent with this episode. Also states for the past 5 days she's noticed a small "pea" sized lump in her R armpit. Admits to shaving her armpits daily. Also states she developed dysuria today. Denies hematuria, hx of kidney stones, fever, N/V/D, breast mass , family hx of breast CA, vaginal discharge, incontinence, trauma, chest pain, abd pain, recent illness, breast mass or lumps. Past Medical History Reviewed: Historical Data, Nursing Documentation, Vital Signs Vital Signs: Last Vital Signs Temp 98 F 02/23/18 13:46 Pulse 72 02/23/18 13:46 Resp 19 02/23/18 13:46 BP 136/55 L 02/23/18 13:46 Pulse Ox 99 02/23/18 13:46 - Medical History PMH: Anxiety, Arthritis (RA), Asthma, Hypercholesterolemia, Migraine, Rheumatoid Arthritis - Surgical History Surgical History: Back Surgery (7 cm mass removal from right shoulder blade) - Family History Family History: States: Other Other Family History: Denies family hx of breast CA - Home Medications Home Medications: Ambulatory Orders Medication Instructions Recorded Cetirizine Hydrochloride [Zyrtec] 10 mg PO DAILY 03/18/14 Amoxicillin/Clavulanate [Augmentin 1 tab PO BID #20 tab 07/17/15 500 MG-125 MG] Naproxen [Naprosyn] 500 mg PO BID PRN #30 tab 07/17/15 Ciprofloxacin HCl [Cipro] 500 mg PO BID #14 tab 08/20/15 Naproxen 1 tab PO Q8 PRN #21 tablet 02/03/16 Cyclobenzaprine [Cyclobenzaprine 10 mg PO Q8 #15 tab 06/15/16 HCl] Meloxicam [Mobic] 7.5 mg PO DAILY #20 tab 06/15/16 Ciprofloxacin/Ciprofloxa HCl 500 mg PO Q12 #14 tab 10/07/16 [Ciprofloxacin] traMADol [Ultram] 50 mg PO Q6 #12 tab 10/07/16 Cetirizine HCl [Zyrtec Allergy] 10 mg PO DAILY #20 sgl 11/12/16 Famotidine [Pepcid] 20 mg PO BID #16 tab 11/12/16 Methylprednisolone [Medrol Dose 4 mg PO DAILY #21 mg 11/12/16 Pack (21 tabs)] Ciprofloxacin [Cipro] 500 mg PO BID 5 Days tab 03/01/17 Fluconazole [Diflucan] 150 mg PO QWK #2 tab 04/15/17 Phenazopyridine [Phenazopyridine 200 mg PO Q12 PRN #20 tab 04/15/17 HCl] traMADol [Ultram] 50 mg PO TID PRN #15 tab 04/15/17 Albuterol 0.083% [Albuterol 3 ml IH Q4 #20 neb 08/29/17 Sulfate 3 Ml] Epinephrine HCl [Epipen 0.3 mg MR ONCE #1 syr 08/29/17 Auto-Injector] Mask, Face [Nebulizer Aerosol Mask 1 dev INH PRN #1 dev 08/29/17 Adult] Nebulizer [Aeroeclipse II] 1 each ONCE #1 each 08/29/17 Prednisone [Deltasone] 60 mg PO DAILY 5 Days tablet 08/29/17 Erythromycin 0.5% [Erythromycin 1 appl LEFTEYE QID #1 tube 11/29/17 0.5% Oint] Naproxen [Naprosyn] 500 mg PO BID PRN #14 tab 02/23/18 - Allergies Allergies/Adverse Reactions: Allergies Allergy/AdvReac Type Severity Reaction Status Date / Time apple Allergy URTICARIA Verified 02/23/18 10:09 banana Allergy URTICARIA Verified 02/23/18 10:09 chocolate flavor Allergy URTICARIA Verified 02/23/18 10:09 EGG Allergy URTICARIA Verified 02/23/18 10:09 garlic Allergy URTICARIA Verified 02/23/18 10:09 latex Allergy RASH Verified 02/23/18 10:09 milk Allergy URTICARIA Verified 02/23/18 10:09 oats Allergy URTICARIA Verified 02/23/18 10:09 peas Allergy URTICARIA Verified 02/23/18 10:09 shellfish derived Allergy URTICARIA Verified 02/23/18 10:09 wheat Allergy URTICARIA Verified 02/23/18 10:09 bee sting Allergy URTICARIA Uncoded 02/23/18 10:09 mosquito bite Allergy URTICARIA Uncoded 02/23/18 10:09 Review of Systems ROS Statement: Except As Marked, All Systems Reviewed And Found Negative Genitourinary Female: Positive for: Pelvic Pain Musculoskeletal: Positive for: Back Pain Physical Exam - Physical Exam Appears: Positive for: Well, Non-toxic, No Acute Distress Skin: Positive for: Normal Color, Warm. Negative for: Rash Eye Exam: Positive for: Normal appearance ENT: Positive for: Normal ENT Inspection Neck: Positive for: Normal, Painless ROM Cardiovascular/Chest: Positive for: Regular Rate, Rhythm, Chest Non Tender Respiratory: Positive for: Normal Breath Sounds. Negative for: Respiratory Distress Pulses-Radial (L): 2+ Pulses-Radial (R): 2+ Gastrointestinal/Abdominal: Positive for: Normal Exam, Soft, Other (no palpable masses on pelvic). Negative for: Tenderness (including pelvic area) Back: Positive for: Normal Inspection. Negative for: L CVA Tenderness, R CVA Tenderness Extremity: Positive for: Other (R axilla with small pea sized mobile non-tender non-fluctuant and non erythematous mass ) Neurologic/Psych: Positive for: Alert, Oriented (x3). Negative for: Aphasia, Facial Droop - Laboratory Results Result Diagrams: 02/23/18 10:50 02/23/18 10:50 Urine POC: Negative Urine dip results: Negative for: Leukocyte Esterase, Blood, Nitrate, Ketones, Glucose, Bilirubin, Protein - ECG O2 Sat by Pulse Oximetry: 98 - Progress ED Course And Treament: Labs, pelvic US, toradol 30mg IV, urine culture ordered. 1255 TVUS: 2.0 x 2.3 x 2.7 cm intramural anterior fundal fibroid. Multiple nabothian. No ovarian cyst. On re-evaluation, pt. in no distress. Seen sitting down on stretcher comfortably playing with cell phone. No CVA tenderness b/l. Pt. informed of results advised to f/u with OBGYN. Pt. given [facility] contact [facility]. Advised to f/u. Pt. agrees with care and will f/u. Also told to f/u with PMD for further evaluation of axillary lymph node. Disposition - Clinical Impression Clinical Impression: Back pain, Fibroid, Nabothian cyst, Axillary lymphadenopathy - Patient ED Disposition Is Patient to be Admitted: No - Disposition [facility]errals[facility]Outside] [facility] [Outside] Ariel Leija MD [Staff Provider] - Disposition: Routine/Home Disposition Time: 12:55 Condition: STABLE Additional Instructions: FOLLOW UP WITH OBGYN FOR FURTHER EVALUATION ACOSTA GRAYSON, thank you for letting us take care of you today. Your provider was Angeles Driver MD and you were treated for BACK PAIN,PELVIC PAIN. The emergency medical care you received today was directed at your acute symptoms. If you were prescribed any medication, please fill it and take as directed. It may take several days for your symptoms to resolve. Return to the Emergency Department if your symptoms worsen, do not improve, or if you have any other problems. Please contact your doctor or call one of the physicians/clinics you have been referred to that are listed on the Patient Visit Information form that is included in your discharge packet. Bring any paperwork you were given at discharge with you along with any medications you are taking to your follow up visit. Our treatment cannot replace ongoing medical care by a primary care provider outside of the emergency department. Thank you for allowing the [facility] team to be part of your care today. If you had an X-Ray or CT scan: A Radiologist will review the ED reading if any change in treatment is needed we will contact you. If you had a blood, urine, or wound culture: It will take several days for the results, if any change in treatment is needed we will contact you. If you had an STI test: It will take 48 hours for the results. Please call after 1 week if you have not heard back. Prescriptions: Naproxen [Naprosyn] 500 mg PO BID PRN #14 tab PRN Reason: Pain Instructions: Uterine Fibroids (DC) Forms: [email or web address] (Irish) Print Language: CYMRAES
[2018-02-23 11:02] LABS: BASO # 0.1 K/uL (0.0-0.2); EOS # 0.3 K/uL (0.0-0.7); EOS % 3.2 % (0.0-4.0); HEMOGLOBIN 13.6 g/dL (12.0-16.0); LYMPH # 2.8 K/uL (1.0-4.3); LYMPH % 35.4 % (20.0-40.0); MEAN CELL VOLUME 84.9 fl (81.0-99.0); MEAN CORPUSCULAR HEMOGLOBIN 27.9 pg (27.0-31.0); MEAN CORPUSCULAR HGB CONC 32.8 g/dL (33.0-37.0); MEAN PLATELET VOLUME 9.7 fl (7.2-11.7); MONO # 0.7 K/uL (0.0-0.8); MONO % 8.3 % (0.0-10.0); NEUT # 4.2 K/uL (1.8-7.0); NEUT % 52.1 % (50.0-75.0); RBC 4.86 Mil/uL (3.80-5.20); RED CELL DISTRIBUTION WIDTH 13.9 % (11.5-14.5)
[2018-02-23 11:19] LABS: SQUAMOUS EPITHIAL 1 /hpf (0-5); URINE BACTERIA RARE (<OCC); URINE BILIRUBIN NEGATIVE (NEGATIVE); URINE BLOOD NEGATIVE (NEGATIVE); URINE CLARITY CLEAR (Clear); URINE COLOR STRAW (YELLOW); URINE GLUCOSE (UA) NEG (Normal); URINE LEUKOCYTE ESTERASE NEG Leu/uL (Negative); URINE PROTEIN NEGATIVE (NEGATIVE); URINE UROBILINOGEN 0.2-1.0 mg/dL (0.2-1.0)
[2018-02-23 11:22] LABS: ALB/GLOB RATIO 1.4 (1.0-2.1); ALBUMIN 4.1 g/dL (3.5-5.0); ALT/SGPT 29 U/L (9-52); AST/SGOT 22 U/L (14-36); BLOOD UREA NITROGEN 7 mg/dl (7-17); CALCIUM 9.5 mg/dL (8.4-10.2); GFR NON-AFRICAN AMERICAN > 60
--- NOTE | 2018-02-23 12:56 | US ---
Date of service: 02/23/2018 HISTORY: R pelvic pain COMPARISON: None available. TECHNIQUE: Transvaginal pelvic ultrasound was performed. FINDINGS: UTERUS: Measures 8.4 x 4.4 x 4.9 cm. Anteverted and normal in size. There is a 2.0 x 2.3 x 2.7 cm intramural anterior fundal fibroid. ENDOMETRIUM: Measures 7.4 mm in diameter. Normal in appearance. CERVIX: There are several nabothian cysts. RIGHT OVARY: Measures 2.5 x 2.0 x 3.8 cm. No solid mass. Normal flow. LEFT OVARY: Measures 3.4 x 1.8 x 3.2 cm. No solid mass. Normal flow. FREE FLUID: No significant free fluid noted. OTHER FINDINGS: None. IMPRESSION: 2.0 x 2.3 x 2.7 cm intramural anterior fundal fibroid. Multiple nabothian. No ovarian cyst.
[2018-02-23 13:47] VITALS: BP 136/55; PULSE 72; RESP 19; TEMP 98
[2018-02-23 18:18] VITALS: O2SAT 98
== END 2018-02-23 13:48 | disposition home or self-care (01) ==
LOC: H.ER 09:56
DX: D25.9 Leiomyoma of uterus, unspecified (principal); N88.8 Other specified noninflammatory disorders of cervix uteri; R59.0 Localized enlarged lymph nodes; E78.00 Pure hypercholesterolemia, unspecified; F41.9 Anxiety disorder, unspecified; M06.9 Rheumatoid arthritis, unspecified
CPT/HCPCS: 76830; 80053; 81003; 81025; 85025; 87086; 96374; 99284; J1885

== ENCOUNTER 2018-09-19 09:20 | Emergency (ER) | payer MEDICAID, OTHER ==
[2018-09-19 09:25] VITALS: BMI 25.0
[2018-09-19 11:34] LABS: BASO # 0.1 K/uL (0.0-0.2); BASO % 0.6 % (0.0-2.0); EOS # 0.3 K/uL (0.0-0.7); HEMOGLOBIN 13.6 g/dL (12.0-16.0); LYMPH % 21.3 % (20.0-40.0); MEAN CELL VOLUME 82.8 fl (81.0-99.0); MEAN CORPUSCULAR HEMOGLOBIN 26.9 pg (27.0-31.0); MEAN CORPUSCULAR HGB CONC 32.5 g/dL (33.0-37.0); MEAN PLATELET VOLUME 9.4 fl (7.2-11.7); MONO # 0.5 K/uL (0.0-0.8); MONO % 5.3 % (0.0-10.0); NEUT # 6.4 K/uL (1.8-7.0); NEUT % 69.8 % (50.0-75.0); NRBC % 0.1 % (0.0-0.0); RBC 5.05 Mil/uL (3.80-5.20); RED CELL DISTRIBUTION WIDTH 13.9 % (11.5-14.5); WHITE BLOOD COUNT 9.2 K/uL (4.8-10.8)
[2018-09-19 11:52] LABS: BLOOD UREA NITROGEN 8 mg/dl (7-17); CALCIUM 9.4 mg/dL (8.4-10.2); GFR NON-AFRICAN AMERICAN > 60
[2018-09-19 11:57] LABS: ALB/GLOB RATIO 1.3 (1.0-2.1); ALBUMIN 4.5 g/dL (3.5-5.0); ALT/SGPT < 6 U/L (9-52); AST/SGOT 36 U/L (14-36)
--- NOTE | 2018-09-19 12:49 | ED PDOC ---
HPI: CCC, URI, Sore Throat Time Seen by Provider: 09/19/18 09:43 Chief Complaint (Nursing): ENT Problem Chief Complaint (Provider): ENT Problem History Per: Patient History/Exam Limitations: no limitations Onset/Duration Of Symptoms: Days (1) Current Symptoms Are (Timing): Still Present Location Of Pain: Throat Associated Symptoms: denies: Fever, Cough Additional Complaint(s): 48 year old female with past medical history of rheumatoid arthritis, asthma and fibroids presents to the ED complaining of throat pain and trouble breathing onset yesterday. Patient went to the doctor's office where someone was eating fish and the patient is allergic to fish. She feels itchiness on her throat. Otherwise, denies any other complaints. PMD: Dr. Poole Past Medical History Reviewed: Historical Data, Nursing Documentation, Vital Signs Vital Signs: Last Vital Signs Temp 97.4 F L 09/19/18 09:25 Pulse 89 09/19/18 09:25 Resp 20 09/19/18 09:25 BP 131/93 H 09/19/18 09:25 Pulse Ox 99 09/19/18 09:25 - Medical History PMH: Anxiety, Arthritis (RA), Asthma, Hypercholesterolemia, Migraine, Rheumatoid Arthritis - Surgical History Surgical History: Back Surgery (7 cm mass removal from right shoulder blade) - Family History Family History: States: Unknown Family Hx - Social History Current smoker - smoking cessation education provided: No Alcohol: None Drugs: Denies - Home Medications Home Medications: Ambulatory Orders Medication Instructions Recorded Cetirizine Hydrochloride [Zyrtec] 10 mg PO DAILY 03/18/14 Amoxicillin/Clavulanate [Augmentin 1 tab PO BID #20 tab 07/17/15 500 MG-125 MG] Naproxen [Naprosyn] 500 mg PO BID PRN #30 tab 07/17/15 Ciprofloxacin HCl [Cipro] 500 mg PO BID #14 tab 08/20/15 Naproxen 1 tab PO Q8 PRN #21 tablet 02/03/16 Cyclobenzaprine [Cyclobenzaprine 10 mg PO Q8 #15 tab 06/15/16 HCl] Meloxicam [Mobic] 7.5 mg PO DAILY #20 tab 06/15/16 Ciprofloxacin/Ciprofloxa HCl 500 mg PO Q12 #14 tab 10/07/16 [Ciprofloxacin] traMADol [Ultram] 50 mg PO Q6 #12 tab 10/07/16 Cetirizine HCl [Zyrtec Allergy] 10 mg PO DAILY #20 sgl 11/12/16 Famotidine [Pepcid] 20 mg PO BID #16 tab 11/12/16 Methylprednisolone [Medrol Dose 4 mg PO DAILY #21 mg 11/12/16 Pack (21 tabs)] Ciprofloxacin [Cipro] 500 mg PO BID 5 Days tab 03/01/17 Fluconazole [Diflucan] 150 mg PO QWK #2 tab 04/15/17 Phenazopyridine [Phenazopyridine 200 mg PO Q12 PRN #20 tab 04/15/17 HCl] traMADol [Ultram] 50 mg PO TID PRN #15 tab 04/15/17 Albuterol 0.083% [Albuterol 3 ml IH Q4 #20 neb 08/29/17 Sulfate 3 Ml] Epinephrine HCl [Epipen 0.3 mg MR ONCE #1 syr 08/29/17 Auto-Injector] Mask, Face [Nebulizer Aerosol Mask 1 dev INH PRN #1 dev 08/29/17 Adult] Nebulizer [Aeroeclipse II] 1 each MC ONCE #1 each 08/29/17 Prednisone [Deltasone] 60 mg PO DAILY 5 Days tablet 08/29/17 Erythromycin 0.5% [Erythromycin 1 appl LEFTEYE QID #1 tube 11/29/17 0.5% Oint] Naproxen [Naprosyn] 500 mg PO BID PRN #14 tab 02/23/18 Famotidine [Pepcid] 20 mg PO BID #10 tab 09/19/18 predniSONE [Prednisone] 40 mg PO DAILY #8 tab 09/19/18 - Allergies Allergies/Adverse Reactions: Allergies Allergy/AdvReac Type Severity Reaction Status Date / Time apple Allergy URTICARIA Verified 02/23/18 10:09 banana Allergy URTICARIA Verified 02/23/18 10:09 chocolate flavor Allergy URTICARIA Verified 02/23/18 10:09 EGG Allergy URTICARIA Verified 02/23/18 10:09 garlic Allergy URTICARIA Verified 02/23/18 10:09 latex Allergy RASH Verified 02/23/18 10:09 milk Allergy URTICARIA Verified 02/23/18 10:09 oats Allergy URTICARIA Verified 02/23/18 10:09 peas Allergy URTICARIA Verified 02/23/18 10:09 shellfish derived Allergy URTICARIA Verified 02/23/18 10:09 wheat Allergy URTICARIA Verified 02/23/18 10:09 bee sting Allergy URTICARIA Uncoded 02/23/18 10:09 mosquito bite Allergy URTICARIA Uncoded 02/23/18 10:09 Review of Systems ROS Statement: Except As Marked, All Systems Reviewed And Found Negative Constitutional: Negative for: Fever ENT: Positive for: Throat Pain, Other (trouble breathing ) Respiratory: Negative for: Cough Physical Exam - Reviewed Nursing Documentation Reviewed: Yes Vital Signs Reviewed: Yes - Physical Exam Appears: Positive for: Well, Non-toxic, No Acute Distress Head Exam: Positive for: ATRAUMATIC, NORMAL INSPECTION, NORMOCEPHALIC Skin: Positive for: Normal Color, Warm, DRY Eye Exam: Positive for: EOMI, Normal appearance, PERRL ENT: Positive for: Normal ENT Inspection Neck: Positive for: Normal, Painless ROM Cardiovascular/Chest: Positive for: Regular Rate, Rhythm Respiratory: Positive for: Normal Breath Sounds. Negative for: Wheezing, Respiratory Distress Gastrointestinal/Abdominal: Positive for: Normal Exam, Soft Back: Positive for: Normal Inspection Extremity: Positive for: Normal ROM Neurological/Psych: Positive for: Awake, Alert, Normal Tone - Laboratory Results Result Diagrams: 09/19/18 11:20 09/19/18 11:20 Lab Results: Total Bilirubin 0.9 mg/dl (0.2-1.3) 09/19/18 11:20 AST 36 U/L (14-36) D 09/19/18 11:20 ALT < 6 U/L (9-52) L D 09/19/18 11:20 Alkaline Phosphatase 48 U/L (38-126) 09/19/18 11:20 Total Protein 8.1 G/DL (6.3-8.2) 09/19/18 11:20 Albumin 4.5 g/dL (3.5-5.0) 09/19/18 11:20 Globulin 3.6 gm/dL (2.2-3.9) 09/19/18 11:20 Albumin/Globulin Ratio 1.3 (1.0-2.1) 09/19/18 11:20 - ECG O2 Sat by Pulse Oximetry: 99 (RA) Pulse Ox Interpretation: Normal Medical Decision Making Medical Decision Making: Time: 1059 Plan: CMP CBC w/ differential Pepcid 20mg SOLU-Medrol 125mg Reevaluation 1321: Upon review of the labs, potassium is elevated but hemolyzed. 1349: Patient is stable to be discharged. Scribe Attestation: Documented by Ainsley Soares, acting as a scribe forRaj Cruz MD. Provider Scribe Attestation: All medical record entries made by the Scribe were at my direction and personally dictated by me. I have reviewed the chart and agree that the record accurately reflects my personal performance of the history, physical exam, medical decision making, and the department course for this patient. I have also personally directed, reviewed, and agree with the discharge instructions and disposition. Disposition - Clinical Impression Clinical Impression: Allergic reaction - Patient ED Disposition Is Patient to be Admitted: No - Disposition Disposition: Routine/Home Disposition Time: 13:49 Condition: IMPROVED Additional Instructions: follow up in the clinic in 2 days for reevaluation take benadryl as needed for allergic reaction every 6 hours return to the ED with any worsening or concerning symptoms Prescriptions: Famotidine [Pepcid] 20 mg PO BID #10 tab predniSONE [Prednisone] 40 mg PO DAILY #8 tab Instructions: Food Allergy Forms: [employer] (Jordanian)
[2018-09-19 14:00] VITALS: BP 128/72; PULSE 78; RESP 16; TEMP 97.7; O2SAT 100
== END 2018-09-19 14:00 | disposition home or self-care (01) ==
LOC: H.ER 09:20
DX: T78.1XXA Other adverse food reactions, not elsewhere classified, initial encounter (principal); J45.909 Unspecified asthma, uncomplicated; M06.9 Rheumatoid arthritis, unspecified
CPT/HCPCS: 80053; 85025; 96374; 96375; 99282; J2930